=== PATIENT | male | born 1950 | race African-American/Black ===

== ENCOUNTER 2023-03-03 07:44 | Emergency (ER) | payer OTHER ==
[~2023-03-03] VITALS: Ht 185.4 cm; Wt 100.0 kg
[2023-03-03 07:53] VITALS: BP 175/88; PULSE 47; RESP 18; TEMP 97.9; O2SAT 100
== END 2023-03-03 08:15 | disposition left against medical advice (07) ==
LOC: ER 08:04
DX: R51.9 Headache, unspecified (principal); R42 Dizziness and giddiness; H53.8 Other visual disturbances
CPT/HCPCS: 93005; 99283

== ENCOUNTER 2023-08-04 18:51 | Emergency (ER) | payer OTHER ==
[~2023-08-04] VITALS: Ht 185.4 cm; Wt 113.0 kg
[2023-08-04 18:52] VITALS: TEMP 98.4; O2SAT 98
[2023-08-04] MEDS ORDERED: SODIUM CHLORIDE 0.9% 1,000 ML IV ONE (19:00)
[2023-08-04 20:24] VITALS: BP 108/52; PULSE 60; RESP 18
== END 2023-08-04 20:26 | disposition left against medical advice (07) ==
LOC: ER 18:51
DX: R55 Syncope and collapse (principal); R00.1 Bradycardia, unspecified
CPT/HCPCS: 99283; 93005; J7030